=== PATIENT | female | born 1970 | race Caucasian/White ===

== ENCOUNTER 2017-07-24 09:42 | Observation (INO) ==
[2017-07-24 10:10] LABS: Bilirubin,Urine Negative (Negative); Blood,Urine Negative (Negative); Clarity,Urine Clear (Clear); Color,Urine Yellow (Yellow); Glucose,Urine (UA) Normal (Normal); Ketones,Urine Negative (Negative); Leukocyte Esterase,Urine Negative (Negative); Nitrite,Urine Negative (Negative); Protein,Urine Negative (Neg-Trace); Urobilinogen,Urine Normal (Normal)
--- NOTE | 2017-07-24 10:16 | Emergency Department Note ---
Disposition Clinical Impression: Acute diverticulitis Disposition: Admitted As Inpatient Condition: Good Referrals: Shade Prieto CNP [Primary Care Provider] - Forms: ED Satisfaction Letter, Work/School Release Time of Disposition: 11:00 Abdominal Pain HPI - General Chief Complaint: ED Abdominal Pain Stated Complaint: abdominal pain, bloating Time Seen by Provider: 07/24/17 10:05 Source: patient Mode of arrival: ambulatory Limitations: no limitations Nursing Notes Reviewed: Yes Vital Signs Reviewed: Yes - History of Present Illness HPI Narrative: 47-year-old white female with left lower quadrant abdominal pain that started yesterday. She said 3 previous episodes of diverticulitis, most recent was 3 weeks ago diagnosed clinically at [facility] urgent care. She was on Cipro and Flagyl and got better. She finished antibiotics for 5 days ago. The pain started again yesterday. She had nausea. No vomiting. She had some chills last night. No fever. She has loose stools and constipation. No symptoms. She has had a cholecystectomy, appendectomy, and hysterectomy. Pt Subjective Complaint: abdominal pain Onset (ago): day(s) (2) Consistency: constant Location: LLQ Pain Severity: moderate Pain Scale: 6 Quality: sharp Radiation: none Migration to: no migration Improves with: nothing Worsens with: nothing Associated symptoms: Reports: nausea Treatments prior to arrival: other (She had some leftover Cipro and Flagyl and took one last night and this morning.) - Related Data Home Medications Medication Instructions Recorded Confirmed Omeprazole [PriLOSEC] 40 mg PO DAILY 09/05/16 07/24/17 BuPROPion SR (12 HR) [Wellbutrin 150 mg PO DAILY 07/24/17 07/24/17 SR] Ciprofloxacin [Cipro] 500 mg PO BID 07/24/17 07/24/17 Ondansetron ODT [Zofran ODT] 4 mg SL Q6HR PRN 07/24/17 07/24/17 cloNIDine HCl [CloNIDine HCl] 0.1 mg PO DAILY 07/24/17 07/24/17 metroNIDAZOLE [Flagyl] 500 mg PO TID 07/24/17 07/24/17 Allergies Allergy/AdvReac Type Severity Reaction Status Date / Time No Known Allergies Allergy Verified 07/24/17 09:43 All systems ED: reviewed and negative except as stated. Constitutional: Reports: chills. Denies: fever Cardiovascular: Denies: chest pain Respiratory: Denies: cough, dyspnea Gastrointestinal: Reports: abdominal pain, nausea. Denies: vomiting, diarrhea Genitourinary: Denies: urgency, dysuria, frequency Musculoskeletal: Denies: back pain Integumentary: Denies: rash Abdominal Pain PMH - Past Medical History Medical history: Reports: other Female Surgical History: Reports: appendectomy, , cholecystectomy, hysterectomy, orthopedic, other Psychiatric history: Reports: no psych history - Social History Smoking status: Current every day smoker Alcohol use: Reports: occasionally Drug use: Reports: none Physical Exam - General Limitations: no limitations General appearance: alert, in no apparent distress - Head Head exam: atraumatic, normocephalic - Eye Eye exam: Present: PERRL, EOMI. Absent: scleral icterus, conjunctival injection - ENT ENT exam: normal oropharynx, mucous membranes moist, TM's normal bilaterally - Neck Neck exam: Present: normal inspection, full ROM, trachea midline. Absent: tenderness, lymphadenopathy - Respiratory Respiratory exam: Present: normal lung sounds bilaterally. Absent: respiratory distress, wheezes - Cardiovascular Cardiovascular exam: Present: regular rate, normal rhythm, normal heart sounds - Abdominal Exam Abdominal exam: Present: soft, tenderness, guarding, normal bowel sounds. Absent: distention, rebound, organomegaly, mass Abdominal tenderness: Present: LLQ, moderate - Back Exam Back exam: Absent: CVA tenderness (R), CVA tenderness (L) - Neurological Exam Neurological exam: Present: alert, oriented X3, normal gait - Psychiatric Psychiatric exam: Present: normal affect, normal mood - Skin Skin exam: Present: warm, dry, intact, normal color Course - Reevaluation(s) Time: 10:59 Reevaluation #2: Accepted by Dr. Teixeira. Time: 11:13 - Consultations Additional Consultation(s): Clinically the patient has diverticulitis, confirmed on CT. There is no evidence of perforation or abscess. She is having chills and nausea at home, no documented fever. She has completed a course of outpatient treatment and within 4-5 days has recurrent symptoms. I think she would benefit from IV antibiotic therapy in the hospital. I have discussed this with the patient and she is agreeable. Vital Signs Temperature 98.5 F 07/24/17 09:47 Pulse Rate 97 07/24/17 09:47 Respiratory Rate 18 07/24/17 09:47 Blood Pressure 144/88 07/24/17 09:47 O2 Sat by Pulse Oximetry 98 07/24/17 09:47 Temperature 98.5 F 07/24/17 09:47 Pulse Rate 97 07/24/17 09:47 Respiratory Rate 18 07/24/17 09:47 Blood Pressure 144/88 07/24/17 09:47 O2 Sat by Pulse Oximetry 98 07/24/17 09:47 Oxygen Delivery Oxygen Delivery Room Air Abdominal Pain - MDM Narrative Medical decision making narrative: Differential includes but is not limited to diverticulitis, urinary tract infection, ureterolithiasis, ovarian cysts, hernia, muscular pain. - Lab Data Lab results reviewed: Yes I reviewed the patient's lab results. Result diagrams: 07/24/17 10:20 07/24/17 10:20 Lab Results 07/24/17 07/24/17 07/24/17 Range/Units 10:03 10:20 10:20 WBC 13.0 H (4.3-11.1) K/mcL RBC 4.62 (3.82-4.97) M/mcL Hgb 13.6 (11.5-15.4) g/dL Hct 40.7 (35.3-44.9) % MCV 88.1 (83.0-100.0) fL MCH 29.4 (28.0-33.3) pg MCHC 33.4 (31.6-35.5) g/dL RDW 16.1 H (11.5-14.5) % Plt Count 222 (140-400) K/mcL MPV 9.3 L (9.4-12.4) fL Immature Gran % 0.2 (0-4) % Seg Neutrophils % 80.6 % Lymphocytes % 12.9 % Monocytes % 5.3 % Eosinophils % 0.8 % Basophils % 0.2 % Neutrophils # 10.5 H (1.6-8.9) K/mcL Lymphocytes # 1.7 (0.6-4.6) K/mcL Monocytes # 0.7 (0.0-1.3) K/mcL Eosinophils # 0.1 (0.0-0.6) K/mcL Basophils # 0.0 (0.0-0.2) K/mcL Sodium 144 (136-145) mEq/L Potassium 3.8 (3.5-4.5) mEq/L Chloride 107 (98-109) mEq/L Carbon Dioxide 27 (19-29) mEq/L BUN 9 (7-20) mg/dL Creatinine 0.82 (0.57-1.11) mg/dL Est GFR ( Amer) > 60 (> 60) Est GFR (Non-Af Amer) > 60 (> 60) BUN/Creatinine Ratio 11 (6-26) Glucose 92 (70-99) mg/dL Calculated Osmolality 296 (280-300) Calcium 9.2 (8.6-10.8) mg/dL Total Bilirubin 0.6 (0.2-1.2) mg/dL AST 14 (5-34) Units/L ALT 10 (0-55) Units/L Alkaline Phosphatase 33 L (38-126) Units/L Serum Total Protein 6.6 (6.0-8.3) g/dL Albumin 4.0 (3.5-5.0) g/dL Globulin 2.6 (2.4-3.5) g/dL Albumin/Globulin Ratio 1.5 (1.1-2.2) Lipase 17 (8-78) Units/L Urine Color Yellow (Yellow) Urine Clarity Clear (Clear) Urine pH 6.0 (5.0-8.0) pH Units Ur Specific [place] 1.020 (1.010-1.025) Urine Protein Negative (Neg-Trace) mg/dL Urine Glucose (UA) Normal (Normal) mg/dL Urine Ketones Negative (Negative) mg/dL Urine Blood Negative (Negative) Urine Nitrite Negative (Negative) Urine Bilirubin Negative (Negative) Urine Urobilinogen Normal (Normal) mg/dL Ur Leukocyte Esterase Negative (Negative) Ur Culture Indicated? NO (NO) - Radiology Data Radiology results reviewed: Yes I reviewed the patient's radiology results. Impressions Abdomen/Pelvis CT 07/24/17 09:58 IMPRESSION: Findings are consistent with acute uncomplicated sigmoid diverticulitis. D/ / 07/24/2017 10:32:58 Héctor Evangelista MD / jamar Interpreting Provider: Héctor Evangelista MD
[2017-07-24 10:28] LABS: Basophils % 0.2 %; Eosinophils # 0.1 K/mcL (0.0-0.6); Eosinophils % 0.8 %; Hematocrit 40.7 % (35.3-44.9); Hemoglobin 13.6 g/dL (11.5-15.4); Immature Granulocytes % 0.2 % (0-4); Lymphocytes # 1.7 K/mcL (0.6-4.6); Lymphocytes % 12.9 %; Mean Corpuscular HGB Conc 33.4 g/dL (31.6-35.5); Mean Corpuscular Hemoglobin 29.4 pg (28.0-33.3); Mean Corpuscular Volume 88.1 fL (83.0-100.0); Mean Platelet Volume 9.3 fL (9.4-12.4); Monocytes # 0.7 K/mcL (0.0-1.3); Monocytes % 5.3 %; Neutrophils # 10.5 K/mcL (1.6-8.9); Platelet Count 222 K/mcL (140-400); Red Blood Count 4.62 M/mcL (3.82-4.97); Red Cell Distribution Width 16.1 % (11.5-14.5); Segmented Neutrophils % 80.6 %
[2017-07-24 10:51] LABS: Alanine Aminotransferase 10 Units/L (0-55); Albumin/Globulin Ratio 1.5 (1.1-2.2); Alkaline Phosphatase 33 Units/L (38-126); Aspartate Amino Transferase 14 Units/L (5-34); BUN/Creatinine Ratio 11 (6-26); Bilirubin,Total 0.6 mg/dL (0.2-1.2); Blood Urea Nitrogen 9 mg/dL (7-20); Calcium 9.2 mg/dL (8.6-10.8); Carbon Dioxide 27 mEq/L (19-29); Chloride 107 mEq/L (98-109); Globulin 2.6 g/dL (2.4-3.5); Glucose 92 mg/dL (70-99); Lipase 17 Units/L (8-78); Osmolality,Calculated 296 (280-300); Potassium 3.8 mEq/L (3.5-4.5); Sodium 144 mEq/L (136-145); Total Protein 6.6 g/dL (6.0-8.3); eGFR For African Americans > 60 (> 60); eGFR For Non-African Americans > 60 (> 60)
[2017-07-24] MEDS ORDERED: Ondansetron 4 MG/2 ML VIAL IVP ONE (11:06)
[2017-07-24] MEDS ORDERED: Piperacillin/Tazobactam 3.375 GM in D5% in Water (Mini-Bag+) 100 ML IVPB ONE (11:13)
[2017-07-24] MEDS ORDERED: Piperacillin/Tazobactam 3.375 GM in D5% in Water (Mini-Bag+) 100 ML IVPB SCH (12:00)
[2017-07-24] MEDS ORDERED: Acetaminophen 325 MG TABLET PO PRN (12:14)
[2017-07-24] MEDS ORDERED: Naloxone 0.4 MG/ML INJ IVP PRN (12:14)
[2017-07-24] MEDS: Nicotine 21 MG PATCH.TD24 TD SCH (12:52)
--- NOTE | 2017-07-24 14:56 | Internal Med History&Physical ---
Date of Encounter: 07/24/17 Time of Encounter: 14:20 Assessment and Plan (1) Acute diverticulitis Current visit: Yes Status: Acute She has been started on IV Zosyn. I will add IV clindamycin with oral lactobacillus. Labs be repeated in a.m. Internal Medicine - H&P: [facility] Chief complaint: Abdominal pain and bloating Admitted From: Home Plans for Post Hospital Care: Home History of present illness: Ms. Graf is a 47 year old female who came to emergency room stating she had abdominal pain and bloating with chills increasing over the last 48 hours. She had completed a two-week course of Cipro and Flagyl for diagnosis of diverticulitis 6 days previously. She was evaluated in emergency room with abdominal/pelvic CT scan showing findings consistent with uncomplicated sigmoid diverticulitis. She was admitted to [facility] for ongoing care needs. She reports 2 additional previous similar episodes of diverticulitis prior to the one 2 weeks ago. She had colonoscopy approximately 5 years ago for an episode of "colitis". She has had cholecystectomy. She has GERD symptoms occasionally. She denies disorders of her liver or exocrine pancreas. Past Med Surg Social Fam HX - Past Medical History Medical history: other Psychiatric history: no psych history - Past Surgical History Surgical History: orthopedic, other - Social History Smoking Status: Current every day smoker Packs per day: 1 Smokeless Tobacco Status: No Alcohol use: occasionally Drug use: none Internal Medicine - H&P: Meds Omeprazole [PriLOSEC] 40 mg PO DAILY 09/05/16 [History] BuPROPion SR (12 HR) [Wellbutrin SR] 150 mg PO DAILY 07/24/17 [History] Ciprofloxacin [Cipro] 500 mg PO BID 07/24/17 [History] Ondansetron ODT [Zofran ODT] 4 mg SL Q6HR PRN 07/24/17 [History] cloNIDine HCl [CloNIDine HCl] 0.1 mg PO DAILY 07/24/17 [History] metroNIDAZOLE [Flagyl] 500 mg PO TID 07/24/17 [History] 3 Allergy/AdvReac Type Severity Reaction Status Date / Time No Known Allergies Allergy Verified 07/24/17 09:43 All Systems PM: A 10-system review of systems was performed and is negative for pertinent findings except as documented above in the HPI. Review of systems: Gen.: She states her weight has been stable the past few months Cardiovascular: She denies hypertension DC heart failure angina DVT or pulmonary embolism Respiratory: She has smoked since age 31 never up to 1 pack per day. She denies chronic lung disease. GI: As per history of present illness : She denies hematuria dysuria or kidney stones Neurologic: She denies large distribution strokes or seizures. Endocrine: She denies diabetes thyroid disease or hyperlipidemia Hematology/oncology: She denies blood disorders cancers or anemia Psychiatric: She denies anxiety depression or other mental health issues [place] skeletal: She denies arthritis gout or other bone joint or muscle disorders. - Constitutional Vitals: Temp Pulse Resp BP Pulse Ox 98.5 F 88 18 129/77 99 07/24/17 09:47 07/24/17 11:38 07/24/17 11:38 07/24/17 11:38 07/24/17 11:38 Exam: Gen.: She is a well-developed well-nourished female who appears in no acute distress at present time HEENT: Head is atraumatic and normocephalic. Eyes: EOMI. There is no scleral icterus. Mouth: Mucosa is moist Neck: Supple and nontender. There is no thyromegaly or adenopathy noted. Heart: Regular without murmurs gallops or ectopics Lungs: No wheezes or crackles are heard. Abdomen: There is mild tenderness to palpation in the left lower abdominal area. No masses or guarding are noted. Bowel sounds are present. Extremities: There is no cyanosis edema, or clubbing noted. Dorsalis pedis and posttibial pulses are trace palpable bilaterally. Neurologic: Mental status: She is talkative and a good historian. Cranial nerves: Smile is symmetric. Forehead wrinkles bilaterally. Tongue protrudes midline. EOMI. Motor: There is no pronator drift. Cerebellar: Finger to nose is intact bilaterally. Skin: Warm and dry. Internal Med - H&P Results - Labs CBC & Chem 7: 07/24/17 10:20 07/24/17 10:20
[2017-07-24] MEDS: Clindamycin 600 MG/50 ML 600 MG/50 ML IV.SOLN IVPB SCH ×2 (15:28→23:27)
[2017-07-24] MEDS: Ondansetron 4 MG/2 ML VIAL IVP PRN ×3 (15:28→23:31)
[2017-07-24] MEDS: Lactobacillus 1 EACH CAP.SPRINK PO SCH (19:34)
[2017-07-24] MEDS: Piperacillin/Tazobactam 3.375 GM in D5% in Water (Mini-Bag+) 100 ML IVPB SCH (19:34)
[2017-07-25] MEDS: Piperacillin/Tazobactam 3.375 GM in D5% in Water (Mini-Bag+) 100 ML IVPB SCH (04:27)
[2017-07-25] MEDS ORDERED: *HR* Enoxaparin 40 MG/0.4 ML SYRINGE SQ SCH (06:00)
[2017-07-25 06:04] LABS: Basophils % 0.4 %; Eosinophils # 0.2 K/mcL (0.0-0.6); Eosinophils % 2.3 %; Hematocrit 35.5 % (35.3-44.9); Hemoglobin 11.8 g/dL (11.5-15.4); Immature Granulocytes % 0.3 % (0-4); Lymphocytes # 2.8 K/mcL (0.6-4.6); Lymphocytes % 35.2 %; Mean Corpuscular HGB Conc 33.2 g/dL (31.6-35.5); Mean Corpuscular Hemoglobin 29.4 pg (28.0-33.3); Mean Corpuscular Volume 88.5 fL (83.0-100.0); Mean Platelet Volume 10.1 fL (9.4-12.4); Monocytes # 0.6 K/mcL (0.0-1.3); Monocytes % 7.2 %; Neutrophils # 4.3 K/mcL (1.6-8.9); Platelet Count 200 K/mcL (140-400); Red Blood Count 4.01 M/mcL (3.82-4.97); Segmented Neutrophils % 54.6 %
[2017-07-25 06:37] VITALS: BP 112/72
[2017-07-25] MEDS: Ondansetron 4 MG/2 ML VIAL IVP PRN (07:46)
[2017-07-25] MEDS: Lactobacillus 1 EACH CAP.SPRINK PO SCH (08:34)
[2017-07-25] MEDS: Nicotine 21 MG PATCH.TD24 TD SCH (08:34)
[2017-07-25] MEDS: Clindamycin 600 MG/50 ML 600 MG/50 ML IV.SOLN IVPB SCH (08:35)
[2017-07-25] MEDS ORDERED: BuPROPion SR (12 HR) 150 MG TABLET PO SCH (09:00)
[2017-07-25] MEDS ORDERED: cloNIDine HCl 0.1 MG TABLET PO SCH (09:00)
--- NOTE | 2017-07-25 10:29 | Discharge Summary ---
Date of Encounter: 07/25/17 Time of Encounter: 10:20 - Discharge Diagnosis (1) Acute diverticulitis Priority: Primary Status: Acute - Discharge Medications Prescriptions: Amoxicillin/Clavulanate [Augmentin] 875 mg PO BIDWM #10 tablet Clindamycin HCl [Cleocin HCl] 300 mg PO Q8H #15 capsule Lactobacillus [Culturelle] 1 each PO BID #10 cap.[email or web address] Home Medications: Omeprazole [PriLOSEC] 40 mg PO DAILY 09/05/16 [History] BuPROPion SR (12 HR) [Wellbutrin SR] 150 mg PO DAILY 07/24/17 [History] Ondansetron ODT [Zofran ODT] 4 mg SL Q6HR PRN 07/24/17 [History] cloNIDine HCl [CloNIDine HCl] 0.1 mg PO DAILY 07/24/17 [History] Amoxicillin/Clavulanate [Augmentin] 875 mg PO BIDWM #10 tablet 07/25/17 [Rx] Clindamycin HCl [Cleocin HCl] 300 mg PO Q8H #15 capsule 07/25/17 [Rx] Lactobacillus [Culturelle] 1 each PO BID #10 cap.sprink 07/25/17 [Rx] Allergies/Adverse Reactions: 3 Allergy/AdvReac Type Severity Reaction Status Date / Time No Known Allergies Allergy Verified 07/24/17 09:43 Date of admission: 07/24/17 11:38 Primary care physician: Shade Prieto CNP - Patient Status Disposition: Home, Self-Care Condition: Good Functional capacity at discharge: independent ambulation Overall status at discharge: patient is progressing back to baseline - Discharge Instructions Follow Up With: Shade Prieto CNP [Primary Care Provider] - 1 week - Diet and Activity Activity: resume usual activities as tolerated Diet: advance to your usual diet Hospital course: Ms. Graf is a 47 year old female who came to emergency room stating she had abdominal pain and bloating with chills increasing over the last 48 hours. She had completed a two-week course of Cipro and Flagyl for diagnosis of diverticulitis 6 days previously. She was evaluated in emergency room with abdominal/pelvic CT scan showing findings consistent with uncomplicated sigmoid diverticulitis. She was admitted to [facility] for ongoing care needs. Initial orders were written by the emergency room physician. I saw her on July 24 and performed a history and physical. She was started on IV Zosyn and clindamycin with lactobacillus given. She had significant improvement overnight with WBC normalizing to 7.8 and resolution of the left shift on differential. She had adequate amounts of food and fluid intake and wished to be discharged home which I felt was reasonable. She will continue with oral Augmentin and clindamycin with lactobacillus for 5 additional days at discharge. She will follow with her PCP within one week. - Time Spent with Patient Total time spent providing and/or coordinating discharge services: - Constitutional Vitals: Temp Pulse Resp BP Pulse Ox 98.2 F 70 16 112/72 95 07/25/17 06:34 07/25/17 06:34 07/25/17 06:34 07/25/17 06:34 07/25/17 06:34
== END 2017-07-25 11:15 | disposition home or self-care (01) ==
LOC: EMEROOPIK 09:42 → INPPIK 09:42
PROVIDERS: ADMIT Internal Medicine; ATTEND Internal Medicine